=== PATIENT | male | born 1970 | race Caucasian/White ===

== ENCOUNTER 2025-02-08 20:10 | Emergency (ER) | payer OTHER, SELFPAY ==
[2025-02-08 20:19] VITALS: BP 152/102
[2025-02-08 20:37] LABS: % Basophils 0.9 % (0-2); % Eosinophils 5.4 % (0-6); % Immature Granulocytes 0.5 % (0-0.5); % Monocytes 6.5 % (1.7-9.3); % Neutrophils 60.7 % (42.2-75.2); Absolute Basophils 0.1 10^3/uL (0-0.2); Absolute Eosinophils 0.4 10^3/uL (0-0.7); Absolute Lymphocytes 2.1 10^3/uL (1.2-3.4); Absolute Monocytes 0.5 10^3/uL (0.1-0.6); Hematocrit 40.8 % (39.0-52.0); Hemoglobin 14.2 g/dL (13.0-18.0); Mean Corp Hgb Conc. 34.8 g/dL (33.0-37.0); Mean Corpuscular Hgb 31.3 pg (27.0-31.0); Mean Corpuscular Volume 90.1 fL (80.0-94.0); Mean Platelet Volume 9.4 fL (7.4-10.4); Nucleated Red Blood Cells % 0 % (-); Platelet Count 252 10^3/uL (130-400); Red Blood Cell Count 4.53 10^6/uL (4.70-6.10); Red Cell Dist. Width 12.9 % (11.5-14.5); White Blood Cell Count 8.2 10^3/uL (4.8-10.8)
[2025-02-08 20:51] LABS: ALT (SGPT) 24 U/L (0-50); AST (SGOT) 22 U/L (17-59); Albumin 3.9 g/dl (3.5-5.0); Alkaline Phosphatase 119 U/L (38-126); Blood Urea Nitrogen 16 mg/dl (9-20); Calcium 9.1 mg/dl (8.4-10.2); Carbon Dioxide 28 mmol/L (22-30); Chloride 105 mmol/L (98-107); Glucose 159 mg/dl (70-99); Potassium 4.3 mmol/L (3.5-5.1); Sodium 140 mmol/L (135-145); Total Bilirubin 0.3 mg/dl (0.2-1.3); Total Protein 6.8 g/dl (6.3-8.2); eGFR > 60.00
--- NOTE | 2025-02-08 21:55 | ED.GENMED ---
History of Present Illness
<Debora Caraballo NP - Last Filed: 02/08/25 22:39>
General
Chief Complaint: Skin Problem
Source: patient
Exam Limitations: none
Time Seen by Provider: 02/08/25 21:41
Nursing documentation reviewed up to this point in time: agreed with
History of Present Illness
History of Present Illness:
Patient to ED with complaint of redness and swelling to LLE. No history of trauma. He has had cellulitis to this leg mulitple times in the past. States usually leg is painful with cellulitis but this time he has no pain. Denies fever/chills. No
open wounds, no drainage. Erythema started approx 2 weeks ago and continues to advance. To ED accompanied by family for eval.
Past History
<Debora Caraballo NP - Last Filed: 02/08/25 22:39>
Past History
ED Past Medical History: Other (cellulitis); Negative IDDM or NIDDM (Borderline diabetes)
ED Past Surgical History: Other (Pilonidal cyst removal)
Social History
Tobacco: Smoker
Alcohol: Occasional
Drug: Other (Crystal meth)
Personal: Single
Living: alone
Employment: Employed
Family History
Family History: Other (Noncontributory)
Review of Systems
<Debora Caraballo NP - Last Filed: 02/08/25 22:39>
Review of Systems
Allergies reviewed?: Yes
All Other Systems: ROS reviewed and negative except as documented in HPI and ROS
Constitutional: Reports no symptoms
EENT: Reports no symptoms
Respiratory: Reports no symptoms
Cardiac: Reports no symptoms
ABD/GI: Reports no symptoms
Musculoskeletal: Reports no symptoms
Skin: Reports other (erythema and swelling to LLE)
Neurological: Reports no symptoms
Psychiatric: Reports no symptoms
Phy Exam
<Debora Caraballo NP - Last Filed: 02/08/25 22:39>
General Physical Exam
General Presentation: well appearing and no apparent distress
General age: appears stated age
General Skin: warm and dry
General Habitus: normal
General Mental: alert
Musculoskeletal Exam
Musculoskeletal Exam: full ROM and neuro vasc intact
Skin Exam
Skin Exam: warm/dry and other (Erythema and swelling to LLE. NO wounds, no drainage.)
Psychiatric Exam
Psychiatric Exam: normal mood/affect
Course
<Debora Caraballo NP - Last Filed: 02/08/25 22:39>
Orders/Labs/Results
Orders:
Orders
02/08/25 20:29
CBC/With Diff [Complete Blood Count/With Diff] Urgent
CMP [Comprehensive Metabolic Panel] Urgent
02/08/25 21:59
US Periph Venous LOWER Ext LT Urgent
Comment:
Reason For Exam: erythema, swelling
02/08/25 22:11
CeFAZolin 1 GRAM [Ancef] 1 gram in 5 ml IV NOW
Abnormal Lab Results
02/08/25
20:29
RBC 4.53 L 10^6/uL
(4.70-6.10)
MCH 31.3 H pg
(27.0-31.0)
Glucose 159 H mg/dl
(70-99)
02/08/25 20:29
02/08/25 20:29
Vital Signs
Initial and Last Documented VS:
Initial Vital Signs
Temp Pulse Resp BP Pulse Ox
97.7 F 100 15 152/102 98
02/08/25 20:19 02/08/25 20:19 02/08/25 20:19 02/08/25 20:19 02/08/25 20:19
Last Documented Vital Signs
Temp Pulse Resp BP Pulse Ox
97.7 F 100 15 152/102 98
02/08/25 20:19 02/08/25 20:19 02/08/25 20:19 02/08/25 20:19 02/08/25 20:19
<Abhay San DO - Last Filed: 02/08/25 22:05>
Orders/Labs/Results
Orders:
Orders
02/08/25 20:29
CBC/With Diff [Complete Blood Count/With Diff] Urgent
CMP [Comprehensive Metabolic Panel] Urgent
02/08/25 21:59
US Periph Venous LOWER Ext LT Urgent
Comment:
Reason For Exam: erythema, swelling
02/08/25 22:11
CeFAZolin 1 GRAM [Ancef] 1 gram in 5 ml IV NOW
Abnormal Lab Results
02/08/25
20:29
RBC 4.53 L 10^6/uL
(4.70-6.10)
MCH 31.3 H pg
(27.0-31.0)
Glucose 159 H mg/dl
(70-99)
02/08/25 20:29
02/08/25 20:29
Vital Signs
Initial and Last Documented VS:
Initial Vital Signs
Temp Pulse Resp BP Pulse Ox
97.7 F 100 15 152/102 98
02/08/25 20:19 02/08/25 20:19 02/08/25 20:19 02/08/25 20:19 02/08/25 20:19
Last Documented Vital Signs
Temp Pulse Resp BP Pulse Ox
97.7 F 100 15 152/102 98
02/08/25 20:19 02/08/25 20:19 02/08/25 20:19 02/08/25 20:19 02/08/25 20:19
<Debora Caraballo INDUSTRIAL EDUCATION TEACHER - Last Filed: 02/08/25 22:39>
*Radiology
Radiology exam reviewed: radiology read reviewed
*Pulse Oximetry
Patient hypoxic: no
*Critical Care Note
Total Time (30-74mins, 75-104mins- exclusive of procedures): Not Applicable
<Debora Caraballo INDUSTRIAL EDUCATION TEACHER - Last Filed: 02/08/25 22:39>
Update Note
Update Note:
Patient to ED with erythema and swelling to LLE x 2 weeks. No wounds, no drainage. Full ROM to leg. Neurovascularly intact. Labs reviewed. WBC normal. Afebrile. US neg for DVT. Will give a dose of ancef in ED and discharge home on Keflex. He
was given instructions on s/s to return to ED and he is agreeable to plan. Case discussed with dr. san who also evaluated this patient. He agrees with findings and plan.
ED Attending Note
<Debora Caraballo, INDUSTRIAL EDUCATION TEACHER - Last Filed: 02/08/25 22:39>
-
Portions of this chart may have been created with voice recognition software.� Occasional wrong word or��sound alike� substitutions may have occurred due to the inherent limitations of voice recognition software.
<Abhay San, DO - Last Filed: 02/08/25 22:05>
ED Attending Note
Patient seen and examined by attending physician: Yes
I performed the substantive portion of visit, reviewed & personally made and approve the management plan that is documented in note by myself or LISANDRA.: Yes
ED Attending Note:
I have seen and evaluated the patient with a [id number] encounter. I have spoken to the advance practicer provider and involved in the medical history, the physical exam, medical decision making.
Evaluation and management service: agree unless noted differently below.
Results interpretation: agree unless noted differently below.
Focused HPI: 54-year-old male presenting with erythema to his left leg. Patient states this has happened before where he required admission for cellulitis. However, patient states this time it is nontender
Physical exam: Cellulitis to left anterior and posterior leg. Distal extremity neurovascular intact. No tenderness to palpation
Medical Decision Making: Will obtain ultrasound rule out DVT. No leukocytosis noted. Will consider IV dose of antibiotic and discharged with antibiotics. Patient does feel comfortable with this
Discharge Plan
Departure
Patient Disposition: Home (Routine Discharge)
Date of Disposition: 02/08/25
Time of Disposition: 22:35
Patient with high blood pressure during this ER visit?: No
Condition: Good
Covid-19: Not Applicable
Discharge Problem:
Cellulitis of left leg
Instructions: Cellulitis (Skin Infection), Adult (DC)
Prescriptions:
New
cephalexin 500 mg capsule
500 mg PO Q6H 10 Days Qty: 40 0RF
No Action
amoxicillin-pot clavulanate 1 TABLET tablet
1 tab PO Q12 Qty: 10 0RF
Rx Instructions:
continue for 5 days
cyclobenzaprine 10 MG tablet
10 mg PO TIDPRN PRN (Reason: spasm) Qty: 9 0RF
hydrocodone-acetaminophen 1 TABLET tablet
1 tab PO Q4HPRN PRN (Reason: pain) Qty: 8 0RF
Referrals:
NONE,* [Family Provider] -
Activity Restrictions/Additional Instructions:
Follow up with your family doctor. Return to the emergency department immediately for fever/chills, increasing pain/redness/swelling to your leg, or for any further concerns.
Interventions
Interventions:
*Risk Screen - Suicide Last Done: 02/08/25 20:19
*General Assessment Last Done: 02/08/25 20:19
*Neglect/Abuse Screening Last Done: 02/08/25 20:19
*ED COVID-19 Vaccine History Last Done: 02/08/25 20:19
Discharge Date and Time
Print Language: [id number]
[2025-02-08] MEDS: ANCEF 5 IV (22:53)
== END 2025-02-08 23:02 | disposition home or self-care (01) ==
LOC: EMR 20:10
PROVIDERS: EMERGENCY PHYSICIAN Student in an Organized Health Care Education/Training Program; FAMILY PHYSICIAN Nurse Practitioner Family
DX: L03.116 Cellulitis of left lower limb (principal); F17.200 Nicotine dependence, unspecified, uncomplicated
CPT/HCPCS: 99284; 96374; 80053; 85025; 93971

== ENCOUNTER 2025-02-16 20:49 | Inpatient (IN) | payer OTHER, SELFPAY ==
[2025-02-16 17:06] VITALS: BP 162/80
--- NOTE | 2025-02-16 18:02 | ED.GENMED ---
History of Present Illness
General
Chief Complaint: Skin Problem
Source: patient
Exam Limitations: none
Time Seen by Provider: 02/16/25 17:43
Nursing documentation reviewed up to this point in time: agreed with
History of Present Illness
History of Present Illness:
Patient is a 54-year-old male with history of recurrent cellulitis of bilateral lower extremities presenting to the emergency department with worsening redness and swelling of left lower extremity. Patient was seen in the emergency department on
02/08/2025 and discharged on oral antibiotics for cellulitis of his left lower leg. He was also given a dose of IV Ancef in the ED. Patient states that redness and swelling have continued to worsen since discharge despite oral abx at home. He
reports redness progressing from left mir now up to left mid thigh. He reports a tightness sensation in the skin of his left leg limiting his range of motion.
He denies any significant pain. Patient denies any fevers, chills, significant weakness.
He does also note feeling very itchy across his body and is wondering if he is reacting to one of his antibiotics. He denies any shortness of breath, itchiness in throat, swelling of tongue, or abdominal pain.
Of note�patient has a significant history of cellulitis requiring hospitalizations and IV antibiotics. He has been seen by infectious disease multiple times where they have not determined an exact etiology.
Past History
Past History
ED Past Medical History: Other (cellulitis); Negative IDDM or NIDDM (Borderline diabetes)
ED Past Surgical History: Other (Pilonidal cyst removal)
Social History
Tobacco: Smoker
Alcohol: Occasional
Drug: Other (Crystal meth)
Personal: Single
Living: alone
Employment: Employed
Family History
Family History: Other (Noncontributory)
Review of Systems
Review of Systems
Allergies reviewed?: Yes
All Other Systems: ROS reviewed and negative except as documented in HPI and ROS
Phy Exam
Physical Exam
Physical Exam:
Vitals: Mildly tachycardic, otherwise vital signs stable. Afebrile
General: Patient is well appearing, no acute distress
Skin: Cellulitis of left lower extremity as described above. Diffuse erythematous rash of bilateral lower extremities and abdomen.
Head: Normocephalic, atraumatic
Eyes: Sclera nonicteric. EOMs intact. No nystagmus.
Throat: Protecting airway
Neck: Normal ROM, no cervical spine tenderness, no meningismus
Cardiac: Regular rate and rhythm, no murmurs.
Pulm: Normal respiratory effort, no wheezes, rales, rhonchi heard on exam.
Abdomen: No abdominal tenderness.
Extremities: Erythema and swelling of left lower extremity from left foot to left mid thigh, warm to touch. No red streaking. Normal sensation. Palpable left DP and PT pulse.
Neuro: AAOx3. CN II-XII intact. No focal neurologic deficits.
Psychiatric: Normal affect.
Course
Orders/Labs/Results
Orders:
Orders
02/16/25 Dinner
Regular
At Your Request: Full Participation
Does patient need a safe tray?: No
02/16/25 18:08
Complete Blood Count/With Diff Urgent
Comprehensive Metabolic Panel Urgent
Lactic Acid Q4H
Comment: CANCEL 2nd LACTIC ACID IF 1st LACTIC ACID IS LESS THAN 2
02/16/25 18:18
Diphenhydramine [Benadryl] 25 mg PO NOW STA
02/16/25 19:49
Piperacillin/Tazo 3.375 Gram [Zosyn] 3.375 gram in 50 ml IV NOW
Vancomycin [Vancocin] 2,000 mg 0.9% Sodium Chloride 500 ml [Nss] 500 ml IV NOW
02/16/25 20:19
Admit/Transfer Patient As Directed
Co-Sign Provider:
Level of Care: Inpatient admission
Assign to:: Medical/Surgical
Physician / Group: hospitalist
Diagnosis: cellulitis
Reason for Hospitalization: cellulitis with failure of outpatient abx
Expected length of stay greater than two midnights?: Yes
ELOS- Estimated Length of Stay in days: 2
I certify the patient meets the requirements for IP care: Yes
02/16/25 20:20
Code Status As Directed
Resuscitation Status: Full Code
PRN Pain Medication Management As Directed
May give lesser potent ordered pain med per pt: Yes
preference::
Protocol:: Medication orders for pain may be administered in a
manner that supports deferring to patient preference
when the pt is:
- Requesting an ordered lesser potent pain medication.
Least to most potent pain medications are defined
as: acetaminophen < NSAID < tramadol < opioids
(morphine, oxycodone, hydromorphone).
- Requesting a lesser dose of the same medication IF
ORDERED.
- Requesting a less intrusive route of administration
if both routes are prescribed by the provider (PO <
IV).
02/16/25 21:27
Acetaminophen [Tylenol] 650 mg PO Q4HPRN PRN
Bisacodyl [Dulcolax] 10 mg RECTAL [id number] PRN
Diphenhydramine [Benadryl] 25 mg PO Q4HPRN PRN
Docusate W/Senna [Senokot-S] 1 tablet PO BIDPRN PRN
Ketorolac [Toradol] 10 mg IV Q6HPRN PRN
Polyethylene Glycol Powder [Miralax] 17 grams PO DAILYPRN PRN
02/16/25 21:27
Activity As Directed
Activity Level: With Assistance
Elevate Extremity As Directed
Extremity:: left lower extremity
Vital Signs As Directed
Frequency: Per unit guidelines
DX Deep Vein Thrombosis Video Routine
02/16/25 21:44
MRSA Screen Routine
IWONA Source: Nose
Specimen Description:
02/17/25 06:00
Basic Metabolic Panel IN AM
Complete Blood Count/No Diff IN AM
02/17/25 18:00
Enoxaparin Sodium [Lovenox] 40 mg SC QPM
Abnormal Lab Results
02/16/25
18:08
RBC 4.32 L 10^6/uL
(4.70-6.10)
Hct 38.8 L %
(39.0-52.0)
Absolute Monos (auto) 0.9 H 10^3/uL
(0.1-0.6)
Monocytes % 10.0 H %
(1.7-9.3)
Eosinophils % 6.8 H %
(0-6)
Glucose 115 H mg/dl
(70-99)
02/16/25 18:08
02/16/25 18:08
Vital Signs
Initial and Last Documented VS:
Initial Vital Signs
Temp Pulse Resp BP Pulse Ox
98.2 F 103 20 162/80 98
02/16/25 17:06 02/16/25 17:06 02/16/25 17:06 02/16/25 17:06 02/16/25 17:06
Last Documented Vital Signs
Temp Pulse Resp BP Pulse Ox
97.6 F 85 16 161/77 98
02/16/25 23:31 02/16/25 23:31 02/16/25 23:31 02/16/25 23:31 02/16/25 23:31
MDM/Problems Addressed
Differential Diagnosis Includes:
Not limited to: Cellulitis, drug hypersensitivity, DVT, contact dermatitis, atopic dermatitis, urticaria, etc.
MDM/Problems Addressed:
Patient is a 54-year-old male with history as documented presenting with worsening cellulitis of left lower extremity failing outpatient abx therapy. No associated fevers, chills, vomiting. No numbness/tingling in left lower extremity. Patient
hypertensive and mildly tachycardic on arrival. He is afebrile. Physical exam as above. Patient is overall well-appearing and nontoxic. There is erythema and swelling of left lower extremity extending from left foot to left mid thigh. LLE
neurovascularly intact he does also have generalized erythema and pruritus across his body which may be secondary to a drug reaction. He has no oral swelling, pharyngeal erythema, or difficulty breathing. Will check basic labs, lactic. He did
have negative DVT study in ED on 02/08/2025. Symptoms more consistent with cellulitis. Given failure of outpatient therapy�patient will likely require admission for IV antibiotics.
Update: Labs reviewed. No leukocytosis. Chemistry without clinically significant abnormalities. Lactic acid is normal. However�given progressively worsening cellulitis of LLE despite appropriate oral antibiotic therapy�will admit for IV
antibiotics. Vancomycin/Zosyn initiated in ED. Patient accepted to hospital service in stable condition
Chronic conditions affecting care:
Recurrent cellulitis of bilateral lower extremities
Acute Exacerbation and/or Progression of Chronic Illness:
Acute cellulitis of left lower extremity failing outpatient antibiotic
*Pulse Oximetry
Patient hypoxic: no
*EKG
Interpreted by ED Provider?: NA
*Pipe Recovery Specialist Interpretation
Rate: Pipe Recovery Specialist- N/A
*Critical Care Note
Total Time (30-74mins, 75-104mins- exclusive of procedures): Not Applicable
Data Reviewed
Review of Other/Old Records Reveals: Radiology Studies (Peripheral venous ultrasound of left lower extremity from 02/08/2025-no DVT) and Discharge Summary (ED discharge summary from 02/08/2025-discharged with cellulitis, given IV Ancef and discharged
home on p.o. Keflex)
Source: previous hospital records
Patient Management
Discussion with other providers: Hospitalist
Escalation/DeEscalation of care consider admission/obs:
Admit for IV antibiotics given worsening cellulitis despite p.o. antibiotic
ED Attending Note
-
Portions of this chart may have been created with voice recognition software.� Occasional wrong word or��sound alike� substitutions may have occurred due to the inherent limitations of voice recognition software.
Discharge Plan
Departure
Patient Disposition: Admit
Date of Disposition: 02/16/25
Time of Disposition: 19:50
Presentation/result/management discussed w/ accepting MD/DO: Hospitalist
Discharge Problem:
Cellulitis of left lower extremity
Interventions
Interventions:
*Risk Screen - Suicide Last Done: 02/16/25 21:37
*General Assessment Last Done: 02/16/25 17:06
*Neglect/Abuse Screening Last Done: 02/16/25 18:16
*ED COVID-19 Vaccine History Last Done: 02/16/25 21:35
*Nursing Disposition Last Done: 02/16/25 21:25
ED-Skin Assessment Last Done: 02/16/25 18:15
Discharge Date and Time
Discharge Date/Time: 02/16/25 21:25
[2025-02-16 18:20] LABS: % Basophils 0.9 % (0-2); % Eosinophils 6.8 % (0-6); % Immature Granulocytes 0.2 % (0-0.5); % Lymphocytes 22.5 % (20.5-51.1); % Neutrophils 59.6 % (42.2-75.2); Absolute Basophils 0.1 10^3/uL (0-0.2); Absolute Eosinophils 0.6 10^3/uL (0-0.7); Absolute Lymphocytes 2.1 10^3/uL (1.2-3.4); Absolute Monocytes 0.9 10^3/uL (0.1-0.6); Absolute Neutrophils 5.6 10^3/uL (1.4-6.5); Hematocrit 38.8 % (39.0-52.0); Hemoglobin 13.2 g/dL (13.0-18.0); Mean Corpuscular Hgb 30.6 pg (27.0-31.0); Mean Corpuscular Volume 89.8 fL (80.0-94.0); Mean Platelet Volume 9.7 fL (7.4-10.4); Nucleated Red Blood Cells % 0 % (-); Platelet Count 280 10^3/uL (130-400); Red Blood Cell Count 4.32 10^6/uL (4.70-6.10); Red Cell Dist. Width 12.6 % (11.5-14.5); White Blood Cell Count 9.4 10^3/uL (4.8-10.8)
[2025-02-16 18:40] LABS: Lactic Acid 1.3 mmol/L (0.7-2.0)
[2025-02-16 18:49] LABS: ALT (SGPT) 27 U/L (0-50); AST (SGOT) 30 U/L (17-59); Alkaline Phosphatase 81 U/L (38-126); Blood Urea Nitrogen 19 mg/dl (9-20); Calcium 9.6 mg/dl (8.4-10.2); Carbon Dioxide 28 mmol/L (22-30); Chloride 106 mmol/L (98-107); Glucose 115 mg/dl (70-99); Potassium 4.2 mmol/L (3.5-5.1); Sodium 140 mmol/L (135-145); Total Bilirubin 0.5 mg/dl (0.2-1.3); Total Protein 6.7 g/dl (6.3-8.2); eGFR > 60.00
[2025-02-16] MEDS: BENADRYL 25 MG PO ×2 (19:00→21:43)
[2025-02-16 19:48] VITALS: BMI 32.4
[2025-02-16] MEDS: ZOSYN 50 IV (19:54)
[2025-02-16] MEDS: VANCOCIN 540 MG IV (20:09)
--- NOTE | 2025-02-16 20:09 | HPS.HSE ---
Family Physician
-
Family Physician: RAMOS Contreras
Chief Complaint
-
Left lower leg swelling and redness
History of Present Illness
This is a 54-year-old male who denies any segment past medical history except for recurrent lower extremity cellulitis presents to the emergency department with worsening swelling after trial of outpatient oral antibiotics.
Patient reports history of recurrent cellulitis initially having them multiple times in the right lower extremity with last episode about 2016. Since then has been having cellulitis in the left leg about once every year to every 2 years. He
reported that he was seen in the emergency department on the with redness and swelling was diagnosed with cellulitis given IV antibiotics and sent home on oral Keflex. Patient reports compliance with the Keflex. Initially said the swelling
went down but then within a day or so it came back has remained swollen since. The redness has persisted. He denies fevers or chills. He denies having pain. He had an ultrasound that was negative for DVT on the .
He has also developed a rash. It's unclear whether he started the rash before or after starting antibiotics. He states he has been using lotion applied to skin to treat pain from the cellulitis. He stopped using this 4 days ago but the rash and
pruritus has persisted. He denies any other medication changes. He denies any other exposures.
Here in the emergency department he was hypertensive with a blood pressure of 162/80, pulse was 105, he was satting 98% on room air. He was afebrile. He does not have a white count WBC was 9.4, hemoglobin and platelet counts were normal.
Electrolytes BUN/creatinine were all normal. He does have mild eosinophilia without hypereosinophilia
Medical History
Past Medical History
Past Medical History: Reports Other (Recurrent cellulitis)
Past Surgical History: Reports Other (Pilonidal cyst resection)
Social History
Tobacco: Smoker
Alcohol: Occasional
Drug: None
Personal:
Employment: Employed
Family History
Family History: Not pertinent
Allergies / Home Medications
Allergies reflects when Allergies were last updated in [facility].
Home Medications with original date entered in [facility]
Allergy/Medication List:
Allergies
Allergy/AdvReac Type Severity Reaction Status Date / Time
No Known Allergies Allergy Verified 02/16/25 17:06
Home Medications
cephalexin 500 mg capsule 500 mg PO Q6H 10 days #40 caps 02/08/25
Review of Systems
-
History Source: Patient
Constitutional: Reports No Symptoms
EENT: Reports No Symptoms
Respiratory: Reports No Symptoms
Cardiac: Reports No Symptoms
Abdomen/GI: Reports No Symptoms
: Reports No Symptoms
Musculoskeletal: Reports Edema
Skin: Reports Itching and Rash
Neurological: Reports No Symptoms
Endocrine: Reports No Symptoms
Hematologic/Lymphatic: Reports No Symptoms
Psych: Reports No Symptoms
Physical Exam
Vital Signs
Vital Signs
Temp Pulse Resp BP Pulse Ox
98.2 F 103 20 162/80 98
02/16/25 17:06 02/16/25 17:06 02/16/25 18:15 02/16/25 17:06 02/16/25 17:06
Physical Exam
General: Well Developed, Well Nourished, No Apparent Distress and Comfortable
HEENT: NormoCephalic, Anicteric, Moist mucous membranes and Atraumatic
Respiratory: Clear
Cardiac: S1/S2
GI: Soft, Non Tender, Non Distended and Normal Bowel Sounds
Rectal: Deferred by Provider
Genito-urinary: Deferred by me
Musculoskeletal: No Clubbing, No Cyanosis and No Edema
Skin: Warm and Rash
Neuro: AO x 3 and Nonfocal/grossly intact
Hematologic/Lymphatic: No Lymphadenopathy
Psych: Calm
Laboratory Results
-
02/16/25 18:08
02/16/25 18:08
Laboratory Results
Lactic Acid Cancelled 02/16/25 22:15
Total Bilirubin 0.5 mg/dl (0.2-1.3) 02/16/25 18:08
AST 30 U/L (17-59) 02/16/25 18:08
ALT 27 U/L (0-50) 02/16/25 18:08
Alkaline Phosphatase 81 U/L (38-126) 02/16/25 18:08
Data Reviewed
-
Medical Tests (Nuc Med, Echo, EKG etc): Image Personally Visualized and interpreted
Lab Data: Labs Reviewed by me
Old Records: Reviewed
Impression/Plan
-
IMPRESSION:
54 y.o with h/o recurrent cellulitis comes in with left leg redness and swelling despite 8 days of keflex. No fevers or chills. No leukocytosis. He has developed a generalized pruritus since the cellulitis began in his left leg. Negative DVT
study on 02/08. On exam there is tenderness, induration and persistent erythema on the LLE. She also has a generalized maculo papular pruritic rash in the extremities and neck concerning for a drug rash versus allergic dermatitis secondary to skin
lotion.
PLAN:
Left lower leg cellulitis with failure of outpatient keflex
- admit to med/surg
- IV vancomycin for now
- blood cultures if febrile
- elevate LLE
- pain control
- bendaryl prn itching for now, will hold off further cephalosporin and pcn at this time
-mrsa swab
- recommended hibaclins wash for recurrent cellulitis.
DVT PPX - lovenox sq
Code status - full code
[2025-02-16 20:13] VITALS: BP 148/73
[2025-02-16 21:38] VITALS: BP 126/89; BMI 32.3
--- NOTE | 2025-02-16 21:46 | PHA.VAN.IN ---
Assessment
- Assessment
Renal Function: Appears similar to baseline
Concomitant Antimicrobials: NONE - UNKNOWN RASH
- Previous Dosing Experience
Previous Regimen: 1250MG IV Q8H
Date of Regimen: 10/06/17
Provided Trough of: UNKNOWN; TR= 8 ON PREVIOUS DOSE OF 1GM IV Q8H
Provided AUC of: UNKNOWN - NO NOTES/INTERVENTIONS AVAILABLE
Patient's SCR is: Similar to previous dosing experience
Patient's weight is: Elevated compared to previous dosing experience (10/06/17 WT= 96 KG)
AUC Dosing Plan
- Dosing Variables
Dosing Weight (kg): 111.5
Dosing CrCl (ml/min): 100
Vd coefficient (L/kg): 0.6
- Empiric Dosing
Initial / Loading Dose: 2GM
Maintenance Regimen: 1500MG IV Q12H
Estimated AUC (mcg*h/mL): 547
Estimated Peak (mcg*h/mL): 34.5
Estimated Trough (mcg/ml): 13.8
Estimated Half Life (H): 7.9
Pharmacokinetics Vancomycin I
- -
Patient Age: 54
Patient Sex: Male
Vancomycin Day #: 1
Indication: Skin And Soft Tissue (LLE CELLULITIS)
Requesting Provider: KAREN
Height / Weight:
Height 6 ft
Actual Weight 108.046 kg
Pertinent Past Medical History: RECURRENT LLE CELLULITIS; FAILED OUTPT TX WITH KEFLEX
- Vital Signs / Lab Results
Temp Pulse Resp BP Pulse Ox
97.7 F 84 18 126/89 97
02/16/25 21:38 02/16/25 21:38 02/16/25 21:38 02/16/25 21:38 02/16/25 21:38
Lab Results - Hematology
02/16/25
18:08
WBC 9.4
Lab Results - Chemistry
02/16/25
18:08
BUN 19
Creatinine 0.7
Albumin 4.0
02/16/25 02/16/25
18:08 22:15
Lactic Acid 1.3 Cancelled
--- NOTE | 2025-02-16 21:50 | PTCARENOTE ---
Rec'd pt as new admit from ED with vanco running through R forearm IV. Presents with LLE edema +1 and redness. C/o itchiness, PRN benadryl given per JAN. Able to ambulate from stretcher to bed with assistx1 and LLE weakness. Denies pain at this
time. Oriented to room and call gross. Call gross within reach. Care ongoing.
[2025-02-16 23:31] VITALS: BP 161/77
[2025-02-17] MEDS: VANCOCIN 530 MG IV (05:06)
[2025-02-17 07:13] LABS: Hematocrit 37.8 % (39.0-52.0); Hemoglobin 12.9 g/dL (13.0-18.0); Mean Corp Hgb Conc. 34.1 g/dL (33.0-37.0); Mean Corpuscular Hgb 30.9 pg (27.0-31.0); Mean Corpuscular Volume 90.4 fL (80.0-94.0); Mean Platelet Volume 9.8 fL (7.4-10.4); Platelet Count 246 10^3/uL (130-400); Red Blood Cell Count 4.18 10^6/uL (4.70-6.10); Red Cell Dist. Width 12.9 % (11.5-14.5); White Blood Cell Count 7.7 10^3/uL (4.8-10.8)
[2025-02-17 07:17] VITALS: BP 129/70
[2025-02-17 07:29] LABS: Blood Urea Nitrogen 17 mg/dl (9-20); Calcium 8.9 mg/dl (8.4-10.2); Carbon Dioxide 27 mmol/L (22-30); Chloride 106 mmol/L (98-107); Estimated Creatinine Clearance > 125 ml/min; Glucose 136 mg/dl (70-99); Potassium 4.3 mmol/L (3.5-5.1); Sodium 138 mmol/L (135-145); eGFR > 60.00
--- NOTE | 2025-02-17 08:36 | W.PN.HOSP.TC ---
Today's Communication/Plan
-
Compression therapy
Leg elevation
Cefazolin
ID consult
Assessment / Plan
Assessment / Plan
Gen-AAOx3, NAD, obese
HEENT-NC, AT, anicteric, clear oral mm
Neck-supple
CV-reg, no M, +S1/S2
Lungs-clear B/L
Abd-soft, NT, ND
Ext-no edema
Musculoskeletal-no cyanosis, clubbing
Skin-warm and dry, bilateral lower extremity hyperpigmentation of pretibial area, faint erythema of left lower extremity to thigh, bilateral maculopapular rash on lateral thighs
Neuro-grossly non-focal
Psych-calm, cooperative
Bilateral lower extremity drug rash - suspect related to homeopathic topical cream (Emuaid) that he uses at home. Recommend discontinuation, discussed with patient.
Bilateral lower extremity venous stasis dermatitis -may have mild component of left leg cellulitis. Will switch back to cefazolin. Consult ID.
Recommend compression therapy moving forward, leg elevation. Weight loss recommended. Discussed in detail with patient.
Patient states that with his cellulitis he usually has pain but this time around does not have significant pain.
Obesity due to excess calories
Full code
Anticipated Discharge: Within 24 hours
Subjective/Interval History
-
Date of Service: February 17, 2025
Patient seen and examined. No complaints.
Objective Data
-
Labs:
Laboratory Results
02/17/25
06:37
WBC 7.7
Hgb 12.9 L
Hct 37.8 L
Plt Count 246
Sodium 138
Potassium 4.3
Chloride 106
Carbon Dioxide 27
BUN 17
Creatinine 0.7
Glucose 136 H
Calcium 8.9
Vital Signs:
Vital Signs
Temp Pulse Resp BP Pulse Ox
97.9 F 74 20 129/70 96
02/17/25 07:17 02/17/25 07:17 02/17/25 07:17 02/17/25 07:17 02/17/25 07:17
Review of Systems
-
History Source: Patient
All other systems: Reviewed and negative
[2025-02-17] MEDS: ANCEF 5 IV (09:50)
[2025-02-17] MEDS: FLUSH (NSS) 2 FLUSH IV ×2 (09:51→18:01)
--- NOTE | 2025-02-17 10:41 | CM ---
Patient seen bedside, initial assessment completed. Patient is a 54-year-old male who denies any segment past medical history except for recurrent lower extremity cellulitis presents to the emergency department with worsening swelling after trial of
outpatient oral antibiotics. ID consulted.
Patient reports that he resides w/ his mother in a single story rancher style home- 6 steps to enter. Patient is independent w/ ambulating and ADLs, no DME. No SNF/HC hx reported. Possible OP therapy in the past, patient cannot remember at this
time. No current OP or home services at this time. Patient reports he is trying to apply for SSDI, patient disclosed that he broke his back in 2019.
Address, point of contact and insurance verified
PCP: Raghav Schultz
Pharmacy: [facility]
Plan: Home; no needs
--- NOTE | 2025-02-17 11:02 | CON.ID ---
Consultation
-
Date/Time Consultation Requested: February 17, 2025 0835
Date/Time Consultation Performed: February 17, 2025 1100
Requesting Provider: Dr. Blayne Miller
Performing Provider: Dr. Sherlyn Cruz
Reason for Consultation: 'Cellulitis'
Chief Complaint / Past History
Chief Complaint
Left leg swelling and redness
History of Present Illness
54-year-old male with history of recurrent right lower extremity cellulitis about once a year who presented to the hospital yesterday due to left leg swelling and redness. He reports approximately 1 week ago he is left leg became very swollen and
also red. He thinks his boot may have rubbed against his ankle and then he developed the symptoms. No pain. Previous cellulitis had pain. He presented to the ED on February 08. Peripheral vascular ultrasound negative for DVT. He was discharged on
cephalexin 500 mg 4 times a day x 10 days. Initially the swelling improved. However swelling became worse again and the redness extended up his thigh, therefore he came to the hospital. He also complains of itchy rash on both of his legs, arms,
abdomen and chest. He is unsure when this started. He was using topical ointment but applied only to his lower extremities. He does not think he ever had cephalexin. He tolerated amoxicillin in the past. He denies any fevers or chills. He was
told he was supposed to use compression stockings but patient reports due to his back injury, he has difficulty bending down to put on the compression.
Past History
Additional Past Medical History:
Recurrent LE cellulitis
Additional Past Surgical History:
pilonidal cyst removal
Allergy History:
No Known Allergies Allergy (Verified 02/16/25 17:06)
Medications Reviewed: Yes
Current Antibiotics:
Cefazolin
Social History
Tobacco: Smoker
Alcohol: Occasional
Drug: Other (crystal meth)
Living: With Family (mother)
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
Family History
Family History: Not Pertinent
Review of Systems
Review of Systems
General: Negative Fever, Chills or Change in Appetite
HEENT: Negative Sinus Problems or Headache
Cardiovascular: Negative Chest Pain or Dyspnea
Respiratory: Negative Dyspnea or Cough
Gasteroenterology: Negative Nausea, Vomiting or Diarrhea
Genital / Urological: Negative Dysuria or Flank Pain
Endocrine: Negative Weakness
Skin / Hair / Nails: Rash
Neurological: Negative Dizziness
All systems: All other systems were reviewed and were negative
Vital Signs
Temp Pulse Resp BP Pulse Ox
97.9 F 74 20 129/70 96
02/17/25 07:17 02/17/25 07:17 02/17/25 07:17 02/17/25 07:17 02/17/25 07:17
Physical Exam
Physical Exam
Constitutional: No Acute Distress
Eyes: No Conjunctival Hemorrhage and Sclera Anicteric
Cardiovascular: Regular Rate and S1/S2
Pulmonary: Clear
Gastrointestinal: Soft, Non Tender, Non Distended and Normal Bowel Sounds
Extremities: Edema (Left lower extremity 2+ edema) and Erythema (Left lower extremity mild erythema from ankle up to the leg/calf to distal thigh.)
Skin: Rash (Maculopapular rash on abdomen, bilateral upper extremities, and bilateral lower extremities, mostly on thighs.) and Other (Positive tattoos bilateral upper extremities.)
Neurological: AO x 3
Lab / Diagnostic Study Results
02/17/25 06:37
02/17/25 06:37
Abs Immat Gran (auto) 0.0 10^3/uL (0-0.05) 02/16/25 18:08
Absolute Neuts (auto) 5.6 10^3/uL (1.4-6.5) 02/16/25 18:08
Absolute Lymphs (auto) 2.1 10^3/uL (1.2-3.4) 02/16/25 18:08
Absolute Monos (auto) 0.9 10^3/uL (0.1-0.6) H 02/16/25 18:08
Absolute Basos (auto) 0.1 10^3/uL (0-0.2) 02/16/25 18:08
Immature Gran % 0.2 % (0-0.5) 02/16/25 18:08
Neutrophils % 59.6 % (42.2-75.2) 02/16/25 18:08
Lymphocytes % 22.5 % (20.5-51.1) 02/16/25 18:08
Monocytes % 10.0 % (1.7-9.3) H 02/16/25 18:08
Eosinophils % 6.8 % (0-6) H 02/16/25 18:08
Basophils % 0.9 % (0-2) 02/16/25 18:08
Lactic Acid Cancelled 02/16/25 22:15
Microbiology Results
Micro:
02/16/25 21:44 MRSA Screen - Pending
Nose
Assessment / Plan
# Pruritic rash
- Suspect from cephalexin prescribed in ED.
Review of 02/08 ED note, no mention of rash at the time.
- DC cefazolin.
# Mild LLE cellulitis
- Pt reports tolerated PCN in the past.
- Replace cefazolin with Unasyn.
- Agree with ANTONELLA wrap compression and leg elevation.
[2025-02-17 15:12] VITALS: BP 125/62
[2025-02-17] MEDS: UNASYN IV ×3 (18:00→23:55)
[2025-02-17] MEDS: LOVENOX 40 MG SC (18:00)
[2025-02-17] MEDS: BENADRYL 25 MG PO ×2 (18:01→22:10)
[2025-02-17 23:22] VITALS: BP 137/60
[2025-02-17] MEDS: FLUSH (NSS) 1 FLUSH IV (23:36)
--- NOTE | 2025-02-17 23:57 | PTCARENOTE ---
Pt states that after his first dose of Unasyn (around 18:00) his itchiness/rash got worse. Pt with rash in his trunk/abd/legs. Pt medicated with Benadryl PO around 22:00. See MAR. Refusing Unasyn at this time. RMAOS Godinez notified.
--- NOTE | 2025-02-18 07:52 | W.PN.HOSP.TC ---
Addendum entered and electronically signed by Blayne Miller DO 02/18/25 09:46:
I spoke with Dr. Cruz, okay to discharge on Augmentin. Outpatient follow-up.
Original Note:
Today's Communication/Plan
-
Add Zyrtec
Likely discharge
Assessment / Plan
Assessment / Plan
Gen-AAOx3, NAD, obese
HEENT-NC, AT, anicteric, clear oral mm
Neck-supple
CV-reg, no M, +S1/S2
Lungs-clear B/L
Abd-soft, NT, ND
Ext-no edema
Musculoskeletal-no cyanosis, clubbing
Skin-warm and dry, bilateral lower extremity hyperpigmentation of pretibial area, faint erythema of left lower extremity to thigh, bilateral maculopapular rash on lateral thighs
Neuro-grossly non-focal
Psych-calm, cooperative
Drug rash -differential diagnosis includes cephalexin versus homeopathic topical cream (Emuaid) that he uses at home. Recommend discontinuation, discussed with patient. Add Zyrtec for pruritus. Benadryl as needed for breakthrough itching. Watch
for sedation.
Bilateral lower extremity venous stasis dermatitis -may have mild component of left leg cellulitis. IV Unasyn currently per ID.
Recommend compression therapy moving forward, leg elevation. Weight loss recommended. Discussed in detail with patient.
Patient states that with his cellulitis he usually has pain but this time around does not have significant pain.
Obesity due to excess calories
Full code
Dispo -can discharge home on Augmentin if okay with ID.
Outpatient follow-up. Continue lower extremity compression therapy, elevation, weight loss. Discussed with patient.
Anticipated Discharge: Today
Subjective/Interval History
-
Date of Service: February 18, 2025
Patient seen and examined. Complaining of itching, rash.
Objective Data
-
Vital Signs:
Vital Signs
Temp Pulse Resp BP Pulse Ox
98.4 F 85 18 137/60 96
02/17/25 23:22 02/17/25 23:22 02/17/25 23:22 02/17/25 23:22 02/17/25 23:22
I&O
02/17/25 02/18/25 02/19/25
06:59 06:59 06:59
Intake Total 720 / 720
Balance 720 / 720
Review of Systems
-
History Source: Patient
All other systems: Reviewed and negative
[2025-02-18 08:02] VITALS: BP 131/66
[2025-02-18] MEDS: ZYRTEC 10 MG PO (09:37)
[2025-02-18] MEDS: BENADRYL 25 MG PO (09:38)
--- NOTE | 2025-02-18 09:48 | W.DS.TRANS ---
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
-
Discharge Instructions:
Discharge Diagnosis/Procedures Bilateral lower extremity venous stasis
dermatitis, left lower extremity cellulitis,
drug rash
Diet Regular
Activity As tolerated
Driving Restrictions As prior to admission
Bathing Restrictions None
Instructions:
Stand-Alone Forms:
Changes to Home Medications: No
Discharge Medications:
DC Medications w/original date entered in [employer]
amoxicillin 875 mg-potassium clavulanate 125 mg tablet 1 tab PO BID #14 tabs 02/18/25
cetirizine 10 mg tablet 10 mg PO DAILY #10 tabs 02/18/25
diphenhydramine HCl 25 mg capsule 25 mg PO Q4HPRN PRN itching #0 caps 02/18/25
Home Medication Changes
Pending Results: No
--- NOTE | 2025-02-18 09:48 | W.PN.ID1 ---
Date of Service
Date of Service: February 18, 2025
Today's Communication
Transition Unasyn to Augmentin 875mg po bid through 02/22/25.
Assessment / Plan
# Pruritic rash
- Suspect from cephalexin prescribed in ED.
Review of 02/08 ED note, no mention of rash at the time.
-Received cefazolin x 1 yesterday with progression of rash.
- Supportive care.
# Mild LLE cellulitis
- Pt reports tolerated PCN in the past.
- Review of medical records - pt had received amoxicillin, Unasyn, and Zosyn in the past without issues.
-Transition Unasyn to Augmentin 875mg po bid through 02/22/25.
-Continue with compression and leg elevation.
Chief Complaint
-: Cellulitis
Subjective / Review of Systems
ITCHY rash did progress - tolerable. Leg swelling better.
Will like to go home.
Vital Signs / Physical Exam
Vital Signs
Vital Signs
Temp Pulse Resp BP Pulse Ox
98.1 F 80 18 131/66 98
02/18/25 08:02 02/18/25 08:02 02/18/25 08:02 02/18/25 08:02 02/18/25 08:02
Physical Exam
Constitutional: No Acute Distress
Cardiovascular: Regular Rate and S1/S2
Pulmonary: Clear
Gastrointestinal: Soft, Non Tender, Non Distended and Normal Bowel Sounds
Genito-Urinary: Negative CVA Tenderness
Extremities: Edema (LLE edema decreased) and Erythema (decreased)
Skin: Rash (Scattered Maculopapular rash on BLE thighs to ankes, BUE, abdomen, chest, neck, face)
Neurological: AO x 3
Objective Data
Lab Data
Lab Results
02/17/25 06:37
02/17/25 06:37
Estimated Creat Clear > 125 ml/min 02/17/25 06:37
Lactic Acid Cancelled 02/16/25 22:15
Total Bilirubin 0.5 mg/dl (0.2-1.3) 02/16/25 18:08
AST 30 U/L (17-59) 02/16/25 18:08
ALT 27 U/L (0-50) 02/16/25 18:08
Alkaline Phosphatase 81 U/L (38-126) 02/16/25 18:08
Most recent labs reviewed.
Micro Results:
02/16/25 21:44 MRSA Screen - Final
Nose No Methicillin Resistant Staphylococcus aureus isolated.
Care Review
Plan reviewed with: Physician (Dr. Miller)
--- NOTE | 2025-02-18 10:44 | CM ---
Patient is stable for d/c today. Transitioned to po abx
Private transport home
No CM needs identified at this time
Plan: Home; no needs
--- NOTE | 2025-02-18 11:46 | PTCARENOTE ---
Received patient this am AAOX3. Pt complained of generalized itchy. Pt has red macular rash Back, Abdomen, Bilateral Arms and Bilateral Legs. pt medicated with Benadryl 25 mg PO with releif. Pt started on Zyrtec as ordered. Dr. Miller made
aware of rash. Tolerated diet. OOB ambulating in room with a steday gait independently. Pt for Discharge to home today.
[2025-02-18 12:00] VITALS: BP 130/80
== END 2025-02-18 12:45 | disposition home or self-care (01) | DRG 603 ==
LOC: 4 EAST ACU 20:49
PROVIDERS: Physician Assistant; ADMITTING PHYSICIAN Internal Medicine; ATTENDING PHYSICIAN Hospitalist; EMERGENCY PHYSICIAN Emergency Medicine; FAMILY PHYSICIAN Nurse Practitioner Family; OTHER PHYSICIAN Internal Medicine Infectious Disease
DX: L03.116 Cellulitis of left lower limb (principal); L24.4 Irritant contact dermatitis due to drugs in contact with skin; T49.0X5A Adverse effect of local antifungal, anti-infective and anti-inflammatory drugs, initial encounter; E66.09 Other obesity due to excess calories; Z68.32 Body mass index [BMI] 32.0-32.9, adult; I83.12 Varicose veins of left lower extremity with inflammation; L29.9 Pruritus, unspecified; D72.10 Eosinophilia, unspecified; F17.200 Nicotine dependence, unspecified, uncomplicated
CPT/HCPCS: 80048; 80053; 83605; 85025; 85027; 87070; 96365; 96366; 96367; 99284; 99406